=== PATIENT | male | born 1970 | race Caucasian/White ===

== ENCOUNTER 2020-07-27 14:41 | Emergency (ER) | payer BC ==
[2020-07-27 14:50] VITALS: BP 122/82; PULSE 83; RESP 20; TEMP 98.3
[2020-07-27] MEDS ORDERED: LIDOCAINE 1% INJ 10MG/ML (20 ML MDV) SQ ONE (15:07)
[2020-07-27] MEDS ORDERED: BACITRACIN OINT 1 EACH PACKET TOPICAL ONE (15:07)
--- NOTE | 2020-07-27 15:47 | ED ---
Wound/Laceration HPI - General Chief Complaint: Wound/Laceration Stated Complaint: finger lac Time Seen by Provider: 07/27/20 14:53 Source: patient Mode of arrival: ambulatory Limitations: no limitations - History of Present Illness Initial Comments: Patient is a 49-year-old male presenting to the emergency Department with complaints of a laceration to his right index finger. Patient states he was using a razor blade to cut some tile when he slipped and cut his finger. Patient is on eliquis for DVT. Patient does have some mild active bleeding, has been controlled with a bandage at this time. He states his tetanus vaccine is up-to-date. He has no further complaints at this time. - Related Data Allergies Allergy/AdvReac Type Severity Reaction Status Date / Time No Known Allergies Allergy Verified 07/27/20 14:50 Review of Systems ROS Statement: Those systems with pertinent positive or pertinent negative responses have been documented in the HPI. ROS Other: All systems not noted in ROS Statement are negative. Past Medical History Past Medical History: Deep Vein Thrombosis (DVT) History of Any Multi-Drug Resistant Organisms: None Reported Past Surgical History: Back Surgery Past Psychological History: No Psychological Hx Reported Smoking Status: Never smoker Past Alcohol Use History: None Reported Past Drug Use History: None Reported General Exam - General Exam Comments Initial Comments: GENERAL: Patient is well-developed and well-nourished. Patient is nontoxic and in no acute distress. HEAD: Atraumatic, normocephalic. EYES: Pupils equal round and reactive to light, extraocular movements intact, sclera anicteric, conjunctiva are normal. Eyelids were unremarkable. ENT: Nares patent, oropharynx clear without exudates. Moist mucous membranes. NECK: Normal range of motion, supple without lymphadenopathy or JVD. LUNGS: Unlabored respirations. Breath sounds clear to auscultation bilaterally and equal. No wheezes rales or rhonchi. HEART: Regular rate and rhythm without murmurs, rubs or gallops. ABDOMEN: Soft, nontender, normoactive bowel sounds. No guarding, no rebound. No masses appreciated. : Deferred MUSCULOSKELETAL: Normal extremities with adequate strength and normal range of motion, no pitting or edema. No clubbing or cyanosis. NEUROLOGICAL: Patient is alert and oriented x 3. Motor and sensory are also intact. Normal speech, normal gait. PSYCH: Normal mood, normal affect. SKIN: Warm, Dry, normal turgor, no rashes. Patient has a 2 cm laceration to his right index finger, palmar aspect. He does have some minor active bleeding however it is controlled with pressure and a bandage. Limitations: no limitations Course Vital Signs 07/27/20 14:47 Temperature 98.3 F Pulse Rate 83 Respiratory 20 Rate Blood Pressure 122/82 O2 Sat by Pulse 100 Oximetry Procedures - Laceration Laceration #1 Consent Obtained: verbal consent Indication: laceration Site: hand (Right index finger, palmar aspect.) Size (cm): 2 Description: linear Depth: simple, single layer Anesthetic Used: lidocaine 1% Anesthesia Technique: local infiltration Amount (mls): 3 Pre-repair: irrigated extensively Type of Sutures: nylon Size of Sutures: 5-0 Number of Sutures: 5 Technique: simple, interrupted Patient Tolerated Procedure: well Medical Decision Making - Medical Decision Making Patient is a 49-year-old male here for a 2 cm laceration to his right index finger, palmar aspect. He is on eliquis for DVT. His tetanus vaccine is up-to-date. Patient's wound was cleaned, closed with 5, 5-0 sutures. Patient tolerated procedure well. Patient will have sutures removed in 7-10 days. He is stable for discharge. He needs to keep wound clean and dry. He is in agreement with this plan of care. Disposition Clinical Impression: Laceration of right index finger Disposition: HOME SELF-CARE Condition: Stable Instructions (If sedation given, give patient instructions): Care For Your Stitches (ED) Additional Instructions: Please return to the Emergency Department if symptoms worsen or any other concerns. Stitches need to be removed in 7-10 days. Keep area clean and dry. Is patient prescribed a controlled substance at d/c from ED?: No Referrals: Binu Lamb MD [Primary Care Provider] - 1-2 days
== END 2020-07-27 16:07 | disposition home or self-care (01) ==
LOC: EC 14:41
DX: S61.210A Laceration without foreign body of right index finger without damage to nail, initial encounter (principal); Z79.01 Long term (current) use of anticoagulants; Z86.718 Personal history of other venous thrombosis and embolism; W26.8XXA Contact with other sharp object(s), not elsewhere classified, initial encounter; Y93.89 Activity, other specified; Y92.009 Unspecified place in unspecified non-institutional (private) residence as the place of occurrence of the external cause
CPT/HCPCS: 99282; 12001; J2001

== ENCOUNTER 2020-10-25 15:58 | Emergency (ER) | payer BC, OTHER ==
[2020-10-25] MEDS ORDERED: HYDROcodone/APAP 5-325MG 1 EACH TAB PO STA (16:29)
[2020-10-25] MEDS ORDERED: KETOROLAC 15 MG/ML 1 ML VIAL IM STA (16:29)
[2020-10-25] MEDS ORDERED: LIDOCAINE 1% INJ 10MG/ML (20 ML MDV) SQ ONE (16:31)
[2020-10-25] MEDS ORDERED: BACITRACIN OINT 1 EACH PACKET TOPICAL ONE (16:31)
--- NOTE | 2020-10-25 16:40 | ED ---
General Adult HPI - General Chief complaint: Animal Bite Stated complaint: [facility] dog bite Time Seen by Provider: 10/25/20 16:14 Source: patient Mode of arrival: ambulatory Limitations: no limitations - History of Present Illness Initial comments: 49 year-old male patient presents to the emergency department for evaluation after sustaining dog bite injury. 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 Patient was bit on both legs, right wrist, and left hand. Denies taking anything for pain. Does not take any blood thinning medications. Was able to get the bleeding under control. Denies any difficulty with range of motion. Patient denies any headache, neck pain, back pain, chest pain, shortness of breath, dizziness, weakness, abdominal pain, nausea, vomiting, or difficulties with bowel movements or urination. He states he is up to date on immunizations. The dog was euthanized and they will test for rabies. - Related Data Previous Rx's Medication Instructions Recorded Amoxic-Pot Clav 875-125Mg 1 tab PO Q12HR #20 tablet 10/25/20 [Augmentin 875-125] Allergies Allergy/AdvReac Type Severity Reaction Status Date / Time No Known Allergies Allergy Verified 10/25/20 16:07 Review of Systems ROS Statement: Those systems with pertinent positive or pertinent negative responses have been documented in the HPI. ROS Other: All systems not noted in ROS Statement are negative. Past Medical History Past Medical History: Deep Vein Thrombosis (DVT) History of Any Multi-Drug Resistant Organisms: None Reported Past Surgical History: Back Surgery Additional Past Surgical History / Comment(s): neck surgery - cervical fusion Past Psychological History: No Psychological Hx Reported Smoking Status: Never smoker Past Alcohol Use History: None Reported Past Drug Use History: None Reported General Exam Limitations: no limitations General appearance: alert, in no apparent distress, other (This is a well- developed, well-nourished adult male patient in no acute distress. Vital signs upon presentation are temperature 98.5F, pulse 95, respirations 20, blood pressure 139/88, pulse ox 94% on room air.) Eye exam: Present: normal appearance, PERRL, EOMI. Absent: scleral icterus, conjunctival injection, periorbital swelling ENT exam: Present: normal exam, normal oropharynx, mucous membranes moist Respiratory exam: Present: normal lung sounds bilaterally. Absent: respiratory distress, wheezes, rales, rhonchi, stridor Cardiovascular Exam: Present: regular rate, normal rhythm, normal heart sounds. Absent: systolic murmur, diastolic murmur, rubs, gallop, clicks Extremities exam: Present: full ROM, tenderness, normal capillary refill, other (Radial pulses 2+ and equal bilaterally. Pedal pulses 2+ and equal bilaterally). Absent: normal inspection, pedal edema, joint swelling, calf tenderness Neurological exam: Present: alert, oriented X3, CN II-XII intact Psychiatric exam: Present: normal affect, normal mood Skin exam: Present: warm, dry, intact, normal color. Absent: rash Expanded 1 - Single puncture wound, no active bleeding 2 - Superficial abrasion and ecchymosis, no active bleeding, tenderness 3 - 2 deep puncture wounds noted, no active bleeding, tenderness 4 - Multiple puncture wounds noted, soft tissue swelling, tenderness 5 - Multiple puncture wounds, no active bleeding. Tenderness. 6 - Laceration and puncture wounds noted to the palmar surface of the left hand. No active bleeding. Course Vital Signs 10/25/20 10/25/20 16:04 18:46 Temperature 98.5 F 98.1 F Pulse Rate 95 70 Respiratory 20 18 Rate Blood Pressure 139/88 122/84 O2 Sat by Pulse 94 L 97 Oximetry Procedures - Laceration Laceration #1 Consent Obtained: verbal consent Indication: laceration Site: hand Size (cm): 7 Description: linear Depth: simple, single layer Anesthetic Used: lidocaine 1% Anesthesia Technique: local infiltration Amount (mls): 5 Pre-repair: irrigated extensively Type of Sutures: nylon Size of Sutures: 4-0 Number of Sutures: 5 Technique: simple, interrupted Patient Tolerated Procedure: well, no complications Additional Comments: Wound was loosely approximated due to it being from dog bite. Medical Decision Making - Medical Decision Making 49 year-old male patient presents to the emergency department for evaluation after being attacked by a dog. Physical examination revealed multiple puncture wounds to the right lower leg, left lower leg, right wrist, and dorsal left hand. There was large laceration to the palm of the left hand. Xrays were obtained, showed no foreign body, no bony injury. Patient had full range of motion to the bilateral hands and wrists with and without resistance. All puncture wounds were irrigated extensively utilizing sterile water, a total of 1500ml of fluid was flushed through the wounds. The left hand was loosely approximated with sutures. Dressings were applied. Patient was educated regarding wound care and signs or symptoms of infection. He was started on Augmentin. He is instructed follow with orthopedics for further evaluation of his left hand wound. He declined prescription for pain medication. He is instructed to follow-up with his primary care physician for recheck in 1-2 days. Return parameters were discussed in detail. He verbalizes understanding and ag corie with this plan. Case discussed with my attending Dr. Martinez. - Radiology Data Radiology results: report reviewed Disposition Clinical Impression: Dog bite of right lower leg, Dog bite of left lower leg, Dog bite of right forearm, Dog bite of left hand, Laceration of left hand Disposition: HOME SELF-CARE Instructions (If sedation given, give patient instructions): Animal Bite (ED), Care For Your Stitches (ED), Laceration (ED) Additional Instructions: Keep wounds clean and dry. Cleanse twice daily with warm water and antibacter ial soap. Complete antibiotic prescription in full. Follow-up with orthopedics for further evaluation as soon as possible, call Wednesday morning for an appointment. Return for any new, worsening, or concerning symptoms. Prescriptions: Amoxic-Pot Clav 875-125Mg [Augmentin 875-125] 1 tab PO Q12HR #20 tablet Is patient prescribed a controlled substance at d/c from ED?: No Referrals: Binu Lamb MD [Primary Care Provider] - 1-2 days Ciro Molina DO [Doctor of Osteopathic Medicine] - 1-2 days Time of Disposition: 18:43
--- NOTE | 2020-10-25 17:17 | XR ---
EXAMINATION TYPE: XR wrist complete BILATERAL, XR hand complete LT DATE OF EXAM: 10/25/2020 COMPARISON: Right hand radiograph 08/25/2013 HISTORY: Dog bite. TECHNIQUE: AP, oblique, lateral, and scaphoid views of the bilateral wrists obtained. AP, oblique, an d lateral views of the left hand obtained. FINDINGS: No acute fracture. No dislocation. No evidence of radiopaque foreign body. Normal mineraliz ation. No significant soft tissue swelling. IMPRESSION: 1. No acute fracture or dislocation of the bilateral wrists or left hand. 2. No radiopaque foreign body.
--- NOTE | 2020-10-25 17:21 | XR ---
EXAMINATION TYPE: XR tibia fibula bilateral DATE OF EXAM: 10/25/2020 CLINICAL HISTORY: Dog bite TECHNIQUE: Two views of the right and left tibia and fibula are obtained. COMPARISON: None. FINDINGS: There is soft tissue gas and laceration of the left posteromedial proximal lower leg. Ther e is no acute fracture or dislocation seen bilaterally. The knee and ankle joints appear maintained b ilaterally. Normal osseous mineralization. No radiopaque foreign body. IMPRESSION: 1. Soft tissue gas and laceration of the left posteromedial proximal lower leg. 2. No acute osseous abnormality or radiopaque foreign body bilaterally.
[2020-10-25] MEDS ORDERED: AMOXIC-POT CLAV 875MG STARTER PACK 2 TAB BTL PO STA (18:41)
[2020-10-25 18:47] VITALS: BP 122/84; PULSE 70; RESP 18; TEMP 98.1
== END 2020-10-25 18:53 | disposition home or self-care (01) ==
LOC: EC 15:58
DX: S61.412A Laceration without foreign body of left hand, initial encounter (principal); S81.852A Open bite, left lower leg, initial encounter; S81.851A Open bite, right lower leg, initial encounter; S51.851A Open bite of right forearm, initial encounter; Z86.718 Personal history of other venous thrombosis and embolism; W54.0XXA Bitten by dog, initial encounter; Y92.69 Other specified industrial and construction area as the place of occurrence of the external cause; Y99.0 Civilian activity done for income or pay
CPT/HCPCS: 73110; 73590; 73130; 99283; 12002; J2001

== ENCOUNTER → 2021-02-12 | Outpatient (CLI) | payer BC ==
--- NOTE | 2021-02-12 13:10 | CT ---
EXAMINATION TYPE: CT urogram wo/w con DATE OF EXAM: 02/12/2021 COMPARISON: HISTORY: Calculus of kidney, blood in urine, left sided pain CT DLP: 2498.8 mGycm, Automated Exposure Control for Dose Reduction was Utilized. CONTRAST: CT scan of the abdomen and pelvis is performed with oral and without and with IV Contrast, patient in jected with 100 mL of Isovue 300. FINDINGS: Shunt tubing is present over the right chest extending into the abdomen in the right upper quadrant LUNG BASES: No significant abnormality is appreciated. LIVER/GB: Low dense focus in the left lobe of the liver likely represents a cyst measuring 1 cm, smal ler hypodensities are also present in the left lobe. PANCREAS: No significant abnormality is seen. SPLEEN: No significant abnormality is seen. ADRENALS: No significant abnormality is seen. KIDNEYS: Subcentimeter low dense foci are noted in each kidney which statistically are likely represe nt cysts. The left renal pelvis shows a calculus which measures approximately 10-11 mm in size. No hy dronephrosis bilaterally. There is some periureteral inflammatory change proximally on the left. No a dditional ureteral calcification. Ureters show normal course and caliber. BOWEL: Duodenal diverticulum is suspected at the level of the head of the pancreas. PROSTATE/SEMINAL VESICLES: Prostate is somewhat enlarged and lobular, shows associated calcification, inferior impression noted on the urinary bladder LYMPH NODES: No greater than 1cm abdominal or pelvic lymph nodes are appreciated. OSSEOUS STRUCTURES: No significant abnormality is seen. OTHER: Bilateral inguinal hernias or sizable and contain fat. IMPRESSION: Nonobstructive left renal pelvic stone is identified. Prostatic enlargement. Additional f indings above.
== END | disposition home or self-care (01) ==
LOC: RADXRMAIN 10:22
PROVIDERS: ATTEND Urology
DX: N20.0 Calculus of kidney (principal); N40.0 Benign prostatic hyperplasia without lower urinary tract symptoms
CPT/HCPCS: 74178; 74400; Q9967

== ENCOUNTER → 2021-02-21 | Outpatient (CLI) | payer BC ==
[2021-02-21 15:01] LABS: Basophils % (A) 0 %; Eosinophils # (A) 0.1 k/uL (0-0.7); Eosinophils % (A) 1 %; HCT 46.1 % (39.0-53.0); HGB 15.8 gm/dL (13.0-17.5); Lymphocytes # (A) 1.7 k/uL (1.0-4.8); Lymphocytes % (A) 23 %; MCH 32.3 pg (25.0-35.0); MCHC 34.3 g/dL (31.0-37.0); MCV 94.1 fL (80.0-100.0); Mean Platelet Volume 7.3; Monocytes # (A) 0.4 k/uL (0-1.0); Monocytes % (A) 6 %; Neutrophils # (A) 4.9 k/uL (1.3-7.7); Neutrophils % (A) 67 %; Platelet Count 283 k/uL (150-450); RDW 12.8 % (11.5-15.5); WBC 7.4 k/uL (3.8-10.6)
[2021-02-21 15:03] LABS: Appearance,Urine Clear (Clear); Bacteria,Urine Rare /hpf; Bilirubin,Urine Negative (Negative); Blood,Urine Large (Negative); Calcium Oxalate Crystals,Urine Rare /hpf; Color,Urine Yellow; Glucose,Urine (UA) Negative (Negative); Ketones,Urine Negative (Negative); Leukocyte Esterase,Urine Negative (Negative); Mucus,Urine Rare /hpf; Nitrite,Urine Negative (Negative); Protein,Urine 1+ (Negative); RBC,Urine >182 /hpf (0-5); Specific Gravity,Urine 1.024 (1.001-1.035); Squamous Epithelial Cell,Urine <1 /hpf (0-4); Urobilinogen,Urine <2.0 mg/dL (<2.0)
[2021-02-21 16:58] LABS: African American GFR (CKD) >90 (>60 ml/min/1.73 sqM); Anion Gap 10 mmol/L; Blood Urea Nitrogen 11 mg/dL (9-20); Calcium 9.3 mg/dL (8.4-10.2); Carbon Dioxide 25 mmol/L (22-30); Chloride 105 mmol/L (98-107); Glucose 93 mg/dL (74-99); Non-African American GFR(CKD) 85 (>60 ml/min/1.73 sqM); Potassium 4.4 mmol/L (3.5-5.1); Sodium 140 mmol/L (137-145)
== END | disposition home or self-care (01) ==
LOC: LABPAT 13:13
PROVIDERS: ATTEND Urology
DX: Z01.812 Encounter for preprocedural laboratory examination (principal); N20.0 Calculus of kidney; R31.29 Other microscopic hematuria
CPT/HCPCS: 36415; 80048; 81001; 85025; 87086

== ENCOUNTER 2021-02-27 13:10 | Day surgery (SDC) | payer BC ==
--- NOTE | 2021-02-27 11:43 | P.HPIHPCON ---
History of Present Illness H&P Date: 02/27/21 Chief Complaint: Left renal stone This is a 50-year-old male with history of 1 cm left-sided renal pelvis stone. He is symptomatic from his stone. Discussed with him the option of ESWL versus ureteroscopy. Discussed the risk and benefit of each approach. He agreed to proceed with left-sided ureteroscopy. Discussed the risk which includes but not limited to bleeding, infection, injury to the ureter. He understood all the risk and agreed to proceed with left-sided ureteroscopy, with holmium laser lithotripsy, stone basketing and stent insertion Consent for Procedure: I have explained the operation/procedure to the patient, including the risks, benefits, side effects, alternative therapies (including not receiving the proposed treatment or service), the likelihood of the patient achieving his/her goals, and potential recuperation problems for the procedure/sedation/analgesia, as well as any blood products, if indicated. I also explained to the patient the risks, benefits and side effects of the alternatives, as well as the risks r elated to not receiving the proposed procedure, care, treatment, or services. Past Medical History Past Medical History: Deep Vein Thrombosis (DVT) History of Any Multi-Drug Resistant Organisms: None Reported Past Surgical History: Back Surgery Additional Past Surgical History / Comment(s): neck surgery - cervical fusion Past Psychological History: No Psychological Hx Reported Smoking Status: Never smoker Past Alcohol Use History: None Reported Past Drug Use History: None Reported Medications and Allergies Home Medications Medication Instructions Recorded Confirmed Type Amoxic-Pot Clav 875-125Mg 1 tab PO Q12HR #20 tablet 10/25/20 Rx [Augmentin 875-125] Allergies Allergy/AdvReac Type Severity Reaction Status Date / Time No Known Allergies Allergy Verified 10/25/20 16:07 Surgical - Exam - General well developed, well nourished, no distress, moderate pain - Eyes normal ocular movement, no icteric - ENT normal nares, normal mucosa - Respiratory normal expansion, normal respiratory effort - Abdomen Abdomen: soft, non tender Assessment and Plan Assessment: OR for left-sided ureteroscopy, with holmium laser lithotripsy, stone basketing and stent insertion
[~2021-02-27 13:10] MED LIST: DEXAMETHASONE SOD PHOSPHATE 4 MG/ML 1 ML VIAL IV ONE; HYDROmorphone 0.5 MG/0.5 ML SYRINGE IVP PRN; ONDANSETRON 4 MG/2 ML VIAL IVP ONE
[2021-02-27] MEDS: LACTATED RINGERS 1,000 ML IV SCH ×2 (13:36→13:50)
[2021-02-27 13:42] VITALS: RESP 16
--- NOTE | 2021-02-27 13:54 | XR ---
KUB HISTORY: Calculus of kidney Frontal KUB correlated to CT urogram 02/12/2021 The calcifications seen on prior CT at the level of the left renal pelvis is again noted and measures approximately 1 cm on plain film. There is a phlebolith in left hemipelvis. Bone mineralization is n ormal. No evident pneumoperitoneum or bowel obstruction. Retained fecal debris is present within the colon. There is a tracheal of peritoneal shunt tubing catheter present within the right upper quadran t. IMPRESSION: Nephrolithiasis. Additional findings above.
[2021-02-27] MEDS ORDERED: MIDAZOLAM 2 MG/2 ML VIAL ONE (16:15)
[2021-02-27] MEDS ORDERED: LIDOCAINE 1% INJ 10MG/ML (20 ML MDV) ONE (16:15)
[2021-02-27] MEDS ORDERED: fentaNYL (PF) 50 MCG/ML 2 ML AMP ONE (16:15)
[2021-02-27] MEDS ORDERED: SUCCINYLCHOLINE CHLORIDE 100 MG/5 ML SYR IV ONE (16:15)
[2021-02-27] MEDS ORDERED: PROPOFOL 10 MG/ML 20 ML VIAL IV ONE (16:15)
[2021-02-27] MEDS ORDERED: ALBUTEROL HFA INHALER INHALATION ONE (16:15)
[2021-02-27] MEDS ORDERED: LACTATED RINGERS 1,000 ML IV ONE (17:09)
--- NOTE | 2021-02-27 17:30 | P.OP ---
Date of Procedure: 02/27/21 Preoperative Diagnosis: Left renal calculi Postoperative Diagnosis: Same Procedure(s) Performed: Cystoscopy, left ureteroscopy, holmium laser lithotripsy, stone basketing and stent insertion Implants: 4.8-Yoruba by 26 cm stent in the left ureter or left on a string Anesthesia: LILLIE Surgeon: Steven Leos Estimated Blood Loss (ml): 2 Pathology: other (left renal calculi) Condition: stable Disposition: PACU Indications for Procedure: This is a 50-year-old male with history of 1 cm left-sided renal pelvis stone. He is symptomatic from his stone. Discussed with him the option of ESWL versus ureteroscopy. Discussed the risk and benefit of each approach. He agreed to proceed with left-sided ureteroscopy. Discussed the risk which includes but not limited to bleeding, infection, injury to the ureter. He understood all the risk and agreed to proceed with left-sided ureteroscopy, with holmium laser lithotripsy, stone basketing and stent insertion Operative Findings: Large stone in the left renal pelvis Description of Procedure: Patient was brought to the operating room, general anesthesia was induced he was prepped and draped in sterile fashion a placement dorsal lithotomy position. Cystoscopy fitted with a 21-Yoruba sheath was inserted per urethra, cystoscopy was performed which showed no abnormality within the bladder. Next a sensor wire was advanced through the left ureteral orifice. Next an 1113 Yoruba access sheath was passed over the wire under fluoroscopy into the proximal ureter. Next the flexible ureteroscope was inserted through the access sheath. Renoscopy was performed which showed a large stone within the renal pelvis. Using the holmium laser the stone was fragmented into small fragments, sizable fragments were removed and sent for analysis. Repeat renoscopy showed no injury to the kidney or any sizable fragments. Pullback ureteroscopy was performed which showed no injury to the ureter or any ureteral fragments. As the ureteroscope was withdrawn and a sensor wire was advanced through. Next a ureteral stent was passed over the wire. The proximal curl was visualized on fluoroscopy and the distal curl was visualized using the cystoscope. Stent was left on a string. The bladder was emptied at the end of the case, patient tolerated the procedure well was taken to PACU in stable condition
[2021-02-27 17:41] VITALS: TEMP 96.8
[2021-02-27 18:38] VITALS: BP 131/84; PULSE 85
--- NOTE | 2021-02-28 08:22 | FL ---
EXAMINATION TYPE: FL urography retrograde DATE OF EXAM: 02/27/2021 COMPARISON: NONE HISTORY: Fluoroscopy time TECHNIQUE: Fluoroscopy. FINDINGS: Fluoroscopic guidance was provided during procedure of 22 seconds. IMPRESSION: As Above.
== END 2021-02-27 18:41 | disposition home or self-care (01) ==
LOC: OR 13:10
PROVIDERS: ATTEND Urology
DX: N20.0 Calculus of kidney (principal); Z87.442 Personal history of urinary calculi; Z86.73 Personal history of transient ischemic attack (TIA), and cerebral infarction without residual deficits; Z98.1 Arthrodesis status
CPT/HCPCS: 52356; 82365; 74420; 74018; C2625; C1769; J2250; J1100; J0690; J2405; J2001; J3010; J0330; J2704

== ENCOUNTER → 2022-12-01 | Outpatient (CLI) | payer BC ==
[2022-12-01 15:11] LABS: HCT 45.3 % (39.6-50.0); HGB 14.9 g/dL (13.0-17.0); MCHC 32.9 g/dL (32.0-37.0); MCV 94.4 fL (80.0-97.0); Mean Platelet Volume 9.5 fL (9.5-12.2); NRBC Per 100 WBC 0 /100 WBCS (0.0-0.0); Platelet Count 247 X 10*3/uL (140-440); RDW 12.4 % (11.5-14.5); WBC 5.95 X 10*3/uL (4.50-10.00)
[2022-12-01 15:58] LABS: African American GFR (CKD) 84.3 (60.0-200.0); Anion Gap 9.9 mmol/L (10.00-18.00); Blood Urea Nitrogen 18.7 mg/dL (9.0-27.0); Carbon Dioxide 26.1 mmol/L (20.0-27.5); Non-African American GFR(CKD) 72.8 (60.0-200.0); Potassium 4.7 mmol/L (3.5-5.5)
== END | disposition home or self-care (01) ==
LOC: LABPAT 09:33
PROVIDERS: ATTEND Internal Medicine
DX: Z01.812 Encounter for preprocedural laboratory examination (principal); R06.02 Shortness of breath
CPT/HCPCS: 36415; 80051; 82565; 84520; 85027

== ENCOUNTER 2022-12-03 10:44 | Day surgery (SDC) | payer BC ==
[~2022-12-03 10:44] MED LIST changes: +ALPRAZolam 0.25 MG TAB PO PRN; +ALPRAZolam 0.5 MG TAB PO PRN; +ASPIRIN 325 MG TAB PO STA; +ATORVASTATIN 80 MG TAB PO STA; -DEXAMETHASONE SOD PHOSPHATE 4 MG/ML 1 ML VIAL IV ONE; +HEPARIN SODIUM,PORCINE 10,000 UNIT in SODIUM CHLORIDE 0.9% 1,000 ML IRRIGATION PRN; +HEPARIN SODIUM,PORCINE 2,500 UNIT in SODIUM CHLORIDE 0.9% 250 ML IRRIGATION PRN; -HYDROmorphone 0.5 MG/0.5 ML SYRINGE IVP PRN; +NITROGLYCERIN SL TABS 0.4 MG TAB SUBLINGUAL PRN; -ONDANSETRON 4 MG/2 ML VIAL IVP ONE; +SODIUM CHLORIDE 0.9% 1,000 ML in EMPTY BAG 1 BAG IV SCH
[2022-12-03 11:32] VITALS: RESP 18; TEMP 97.7
[2022-12-03] MEDS ORDERED: VERAPAMIL 2.5 MG/ML 2 ML AMP ONE (11:40)
[2022-12-03] MEDS ORDERED: fentaNYL (PF) 50 MCG/ML 2 ML AMP ONE (11:56)
[2022-12-03] MEDS ORDERED: MIDAZOLAM 2 MG/2 ML VIAL IV ONE ×2 (12:09)
[2022-12-03] MEDS ORDERED: fentaNYL (PF) 50 MCG/1 ML VIAL IV ONE (12:09)
[2022-12-03] MEDS ORDERED: LIDOCAINE 1% INJ 10MG/ML (5 ML VIAL-PF) SQ ONE (12:13)
[2022-12-03] MEDS ORDERED: VERAPAMIL SYRINGE (5 MG/10 ML) INTRAARTER ONE (12:14)
[2022-12-03] MEDS ORDERED: HEPARIN SODIUM 1,000 UN/ML (10ML VL) IV ONE (12:18)
[2022-12-03] MEDS ORDERED: IOPAMIDOL-370 100ML BTL INJ ONE (12:24)
--- NOTE | 2022-12-03 12:28 | P.CARDCATH ---
Description of Procedure: PROCEDURES PERFORMED: Left heart catheterization, bilateral coronary angiography INDICATION: Cardiomyopathy CONSENT:I have discussed the risks, benefits and alternative therapies for the above-mentioned procedure and for both sedation/analgesia as well as necessary blood product administration, if indicated, as they pertain to this patient. The patient has indicated understanding and acceptance of the risks and procedures discussed. PROCEDURE: After the risks, benefits and alternatives of the above mentioned procedure explained in detail with the patient, informed consent was obtained. Patient was taken to the catheterization lab and prepped and draped in usual fashion. 1% lidocaine was used to anesthetize the right radial artery. A 6- [place] sheath was placed in the right radial artery using modified Seldinger technique. Left coronary angiography was performed with a 5-South African JL 3.5 catheter and right coronary angiography was performed with a 5-[place] African JR5 catheter in various views. A 5-[place] African FR5 catheter was inserted into the left ventricle and pressure measurements were obtained. The right radial sheath was removed and a TR band was placed with hemostasis achieved. The patient tolerated the procedure well. Patient was transported back to the post catheterization holding area in stable condition. Conscious Sedation: Patient was monitored under the direct supervision of myself for conscious sedation using Versed and fentanyl for a total duration of 11 minutes HEMODYNAMICS: Aorta: 130/80 LV: 132/5, LVEDP 17mmHg SELECTIVE CORONARY ARTERIOGRAPHY: LEFT MAIN: The left main is a large caliber vessel which bifurcates into the LAD and circumflex. There is no significant stenosis. LEFT ANTERIOR DESCENDING CORONARY ARTERY: LAD is a large caliber vessel which wraps around to the apex. There is no significant stenosis. LEFT CIRCUMFLEX CORONARY ARTERY: Left circumflex is a moderate caliber vessel without significant stenosis. RIGHT CORONARY ARTERY: The right coronary artery is a large caliber vessel which gives off a PDA and PLV branch and is the dominant vessel. There is no significant stenosis. FINAL IMPRESSION: 1. Normal coronary arteries as described above. 2. Mildly elevated left sided filling pressures PLAN: 1. Aggressive risk factor modification per most recent ACC/AHA guidelines. 2. Follow-up in the office in 1-2 weeks.
[2022-12-03 15:58] VITALS: BP 141/76; PULSE 60
== END 2022-12-03 16:15 | disposition home or self-care (01) ==
LOC: CATHCVL 10:44
PROVIDERS: ATTEND Internal Medicine
DX: I42.9 Cardiomyopathy, unspecified (principal); I50.22 Chronic systolic (congestive) heart failure; I44.7 Left bundle-branch block, unspecified; I71.21 Aneurysm of the ascending aorta, without rupture; F32.A Depression, unspecified; Z86.718 Personal history of other venous thrombosis and embolism; Z82.49 Family history of ischemic heart disease and other diseases of the circulatory system; Z79.899 Other long term (current) drug therapy
CPT/HCPCS: 93458; 99152; C1769; C1894; J2250; J2001; J1644; Q9967; J3010

== ENCOUNTER → 2024-04-24 | Outpatient (CLI) | payer BC | END | disposition home or self-care (01) | LOC: LABWHC1 10:17 | PROVIDERS: ATTEND Internal Medicine Clinical Cardiac Electrophysiology | DX: I42.8 Other cardiomyopathies (principal) | CPT/HCPCS: 36415; 84443 ==

== ENCOUNTER → 2024-06-15 | Outpatient (CLI) | payer BC ==
[2024-06-15 10:33] LABS: HCT 49.9 % (39.6-50.0); HGB 16.3 g/dL (13.0-17.0); MCH 30.6 pg (27.0-32.0); MCHC 32.7 g/dL (32.0-37.0); MCV 93.8 FL (80.0-97.0); Mean Platelet Volume 9.1 FL (9.5-12.2); NRBC Per 100 WBC 0 X 10*3/uL (0.00-0.01); Platelet Count 249 X 10*3/uL (140-440); RBC 5.32 X 10*6/uL (4.40-5.60); RDW 12.4 % (11.5-14.5); WBC 6.31 X 10*3/uL (4.50-10.00)
[2024-06-15 10:37] LABS: Blood Urea Nitrogen 17.2 mg/dL (9.0-27.0); Carbon Dioxide 27.8 mmol/L (21.6-31.8); Chloride 103 mmol/L (96-109); Potassium 4.5 mmol/L (3.5-5.5); Sodium 141 mmol/L (135-145)
== END | disposition home or self-care (01) ==
LOC: LABWHC1 07:05
PROVIDERS: ATTEND Internal Medicine Clinical Cardiac Electrophysiology
DX: Z01.818 Encounter for other preprocedural examination (principal)
CPT/HCPCS: 80051; 82565; 84520; 85027

== ENCOUNTER 2024-06-22 13:54 | Day surgery (SDC) | payer BC ==
[2024-06-22] MEDS: SODIUM CHLORIDE 0.9% 1,000 ML IV SCH ×2 (14:42→20:45)
[2024-06-22] MEDS: IV FLUID CONTINUATION 1,000 ML IV ONE (14:42)
[2024-06-22 14:59] VITALS: RESP 16
[2024-06-22 15:10] LABS: ALT 21 U/L (4-49); AST 21 U/L (17-59); African American GFR (CKD) 85 (>60 ml/min/1.73 sqM); Alkaline Phosphatase 88 U/L (38-126); Anion Gap 7 mmol/L; Blood Urea Nitrogen 16 mg/dL (9-20); Calcium 9.7 mg/dL (8.4-10.2); Carbon Dioxide 28 mmol/L (22-30); Chloride 105 mmol/L (98-107); Glucose 94 mg/dL (74-99); Non-African American GFR(CKD) 74 (>60 ml/min/1.73 sqM); Potassium 4.6 mmol/L (3.5-5.1); Sodium 140 mmol/L (137-145); Total Bilirubin 1.1 mg/dL (0.2-1.3); Total Protein 8.8 g/dL (6.3-8.2)
[2024-06-22] MEDS ORDERED: MIDAZOLAM 2 MG/2 ML VIAL ONE (16:22)
[2024-06-22] MEDS ORDERED: fentaNYL (PF) 50 MCG/ML 2 ML AMP ONE (16:22)
[2024-06-22] MEDS ORDERED: KETAMINE HCL IN 0.9 % NACL 50 MG/5 ML SYRINGE ONE (16:22)
[2024-06-22] MEDS ORDERED: hydrALAZINE HCL 20 MG/ML 1 ML VIAL ONE (16:22)
[2024-06-22] MEDS ORDERED: diphenhydrAMINE 50 MG/ML 1 ML VIAL ONE (16:22)
[2024-06-22] MEDS: IOPAMIDOL-370 100ML BTL INJ ONE (16:39)
[2024-06-22] MEDS: ceFAZolin 1 GM in SODIUM CHLORIDE 0.9% IRRIG BTL 250 ML IRRIGATION PRN (16:54)
[2024-06-22] MEDS: LIDOCAINE 1% INJ 10MG/ML (20 ML MDV) SQ ONE (17:10)
[2024-06-22] MEDS: ROPIVACAINE 5 MG/ML 30 ML VIAL MISCELLANE ONE (17:10)
[2024-06-22] MEDS ORDERED: ACETAMINOPHEN TAB 325 MG TAB PO PRN (19:26)
--- NOTE | 2024-06-22 19:39 | P.EPPROC ---
- EP Procedure Note Electrophysiology Procedure Note: Diagnosis Nonischemic cardiomyopathy, chronic Congestive heart failure [place] [employer] class 2 Wide QRS left bundle branch block, QRS width 170 ms Normal coronary arteries On guide line directed medical treatment for greater than 3 months Procedure: Biventricular ICD implantation for management of risk of sudden cardiac and congestive heart failure Result: Successful biventricular ICD implantation, Atrial lead: [employer] 52 cm, pacing threshold 0.5 V at 0.5 ms, P waves greater than 5 mV and pacing impedance 560 ohms. High output testing negative RV ICD lead: [employer], screwed in RV septum, pacing threshold 0.5 V at 0.5 ms, R waves greater than 7 mV, pacing impedance 640 ohms Left ventricular lead: Cortez lead placed in the anterolateral vein. Threshold in the proximal poles 0.7 V at 0.5 ms pacing impedance 780 ohms. No diaphragmatic stimulation along the vein High-voltage impedance 77 ohms Procedure details: Patient was brought to the EP lab in a fasting state. Written informed consent was obtained prior to the procedure. Options, pros and cons, benefits and risks and complications discussed with patient in detail prior to the procedure (shared decision making) previously. Importance of continuing medical treatment emphasized previously. Alternatives discussed previously. Left upper extremity venogram performed. 15 mL IV dye injected in the left arm. Patent axillary/subclavian vein The left pectoral area was prepped and draped as a protocol. IV antibiotics administered 1% lidocaine was used for local anesthesia. A 4 cm incision was made parallel to the deltopectoral groove, about 1.5 cm medial to it. The incision was carried down to the level of the pectoralis muscle and the subfascial pocket was made. Hemostasis was assured. The axillary vein access was obtained. Appropriately sized into to see sheaths were placed. ICD lead implanted in the right ventricle and screwed in. ICD lead tested for threshold, sensing, impedances and tested with high output pacing for diaphragmatic stimulation. Negative diaphragmatic stimulation Atrial lead placed in the right atrial appendage and tested for threshold, sensing, impedance, and tested with high output pacing. Phrenic nerve stimulation negative Coronary sinus/left ventricular epicardial lead placement: Anterolateral vein placement Leads secured to the underlying pectoral muscle after removing sheaths . Pocket irrigated with antibiotic solution. Antibiotic pouch placed Leads connected to the biventricular ICD generator. Wound closed in 3 layers and dressed per protocol Biventricular ICD interrogated and programmed. Appropriate pacing parameters, antitachycardia therapies with antitachycardia pacing cardioversion defibrillations programmed. AV delay and biventricular pacing parameters programmed to achieve optimal physiologic pacing LV offset 70 ms recommended and programmed Short AV delay of 150 ms MADIT RIT programming for VT VF Patient tolerated the procedure well without any acute complications. See scanned device report in EMR for lead details DFT deferred until 3 months for maximization of medical treatment Plan Increase metoprolol succinate to 50 mg p.o. daily Add spironolactone Maximize beta-blockers further
--- NOTE | 2024-06-22 19:40 | P.PRLE ---
RE: Milton Cedeno Dear Binu Milton underwent implantation of a biventricular ICD successfully. We should now increase his beta-blockers to the maximum tolerated doses along with DOMINIC inhibitors/Entresto and spironolactone Thank you for entrusting me with the care of the patient Warm regards Sincerely Kee Zee,
[2024-06-22] MEDS: QUEtiapine 50 MG TAB PO SCH (20:48)
[2024-06-22] MEDS: METOPROLOL SUCCINATE (ER) 25 MG TAB.ER.24H PO STA (20:48)
--- NOTE | 2024-06-23 06:37 | P.DS ---
Providers Attending physician: Kee Zee Primary care physician: Binu Boss [facility] Course: Patient is doing well. No chest discomfort dizziness or lightheadedness Mild discomfort and minimal soakage in the ICD dressing site Heart sounds are normal no rub no gallop Breath sounds are clear no rhonchi no crackles Blood pressure 100/64 in 123/76 mmHg pulse rate in the 60s afebrile Impression Severe nonischemic cardiomyopathy with normal coronary arteries Class II CHF [place] interval of about 180-190 ms with a left bundle branch block, wide QRS, heart rate 70 ms Successful BiV ICD implantation with LV lead in the anterolateral vein with good thresholds all along as well as absence of diaphragmatic stimulation in this vein Plan Increase metoprolol to 50 mg long-acting Add spironolactone 25 mg p.o. daily After chest x-ray and device interrogation if within normal limits, he may go home and follow-up in the device clinic in [address] Huber Future plan further maximization of beta-blockers and defibrillation level testing in 3 months Patient Condition at Discharge: Stable Plan - Discharge Summary New Discharge Prescriptions: New Spironolactone 25 mg PO DAILY #90 tablet Metoprolol Succinate (ER) [Toprol XL] 50 mg PO DAILY #90 tab Discontinued Metoprolol Succinate [Metoprolol Succinate ER] 25 mg PO DAILY No Action QUEtiapine FUMARATE 50 mg PO HS DULoxetine HCL [Cymbalta] 60 mg PO DAILY lisinopriL 2.5 mg PO HS Empagliflozin [Jardiance] 10 mg PO DAILY Discharge Medication List DULoxetine HCL [Cymbalta] 60 mg PO DAILY 12/02/22 [History] QUEtiapine FUMARATE 50 mg PO HS 12/02/22 [History] Empagliflozin [Jardiance] 10 mg PO DAILY 06/22/24 [History] Metoprolol Succinate (ER) [Toprol XL] 50 mg PO DAILY #90 tab 06/22/24 [Rx] Spironolactone 25 mg PO DAILY #90 tablet 06/22/24 [Rx] lisinopriL 2.5 mg PO HS 06/22/24 [History] Follow up Appointment(s)/Referral(s): Arian Huber DO [STAFF PHYSICIAN] - 06/27/24 9:30 am (DEVICE CLINIC APPT ON 06/27 AT 9:[address] HUBER THAT DAY ALSO.) Activity/Diet/Wound Care/Special Instructions: PATIENT EDUCATION MATERIAL Instructions following a heart rhythm device implant. 1. Keep dressing DRY for 5 DAYS. You may cover the area with Saran or Cling Wrap, prior to a shower. 2. The dressing will be removed in the Device Clinic at [facility]. Absorbable sutures were used to close the wound. 3. Avoid raising the left arm above the shoulder level. 4 week restriction 4. Avoid arm movements, like backscratching, rubbing the head, or pulling on a cord. 4 weeks restriction 5. Gentle range of motion movements of the shoulder, closest to the incision should be performed to avoid a frozen shoulder. (Pendulum exercises of the shoulder) 6. The opposite arm may be used freely. 7. Avoid driving for 7 days. 8. Avoid activities such as golfing, swimming, weed whacking, lifting more than 10 pounds weight, bowling, gymnastics and weight training/lifting. (6 weeks restriction) 9. Activities such as wood chopping with an axe, pull-ups in the gymnasium, power lifting, arc-welding, being close to home induction cooktops will always be a problem. 10. Arm sling is only a reminder not to raise the arm above the head. You do not need to keep the arm completely immobilized. Your free to move the arm and use it and for normal activities. In case of any problems, please call [facility], Lula Botello, @ [phone], Attention: Device Clinic Device clinic follow-up in 5 days Follow-up with primary continuity clerk in 2-3 months Change in medications Increase metoprolol succinate to 50 mg p.o. daily Add spironolactone 25 mg p.o. daily Continue lisinopril
[2024-06-23 07:36] VITALS: BP 111/74; PULSE 68; TEMP 98.4
[2024-06-23] MEDS: DULoxetine HCL 60 MG CAPSULE.DR PO SCH (08:23)
[2024-06-23] MEDS: METOPROLOL SUCCINATE (ER) 50 MG TAB.ER.24H PO SCH (08:23)
[2024-06-23] MEDS: SPIRONOLACTONE 25 MG TAB PO SCH (08:23)
[2024-06-23] MEDS: DAPAGLIFLOZIN PROPANEDIOL 5 MG TABLET PO SCH (08:23)
--- NOTE | 2024-06-23 09:22 | XR ---
EXAMINATION TYPE: XR chest 2V DATE OF EXAM: 06/23/2024 7:02 AM COMPARISON: None CLINICAL INDICATION: Male, 53 years old with history of Lead placement check; TECHNIQUE: XR chest 2V Frontal and lateral views of the chest. FINDINGS: Lungs/Pleura: There is no evidence of pleural effusion, focal consolidation, or pneumothorax. Pulmonary vascularity: Unremarkable. Heart/mediastinum: Cardiomediastinal silhouette is unremarkable. Three lead cardiac conduction device overlying the left hemithorax with lead tips projecting over the right ventricle, right atrium and c oronary sinus. Musculoskeletal: No acute osseous pathology. Other findings: None Lines/Tubes: Ventriculoperitoneal shunt tubing noted along the right aspect of the radiograph. IMPRESSION: No acute cardiopulmonary disease/process. [facility] Malcolm Botello, , 06/23/2024 9:20 AM
== END 2024-06-23 10:26 ==
LOC: CATHEP 13:54 → 6NMEDSUR 19:12 → CATHEP 06-23 10:26
PROVIDERS: ATTEND Internal Medicine Clinical Cardiac Electrophysiology
DX: I44.7 Left bundle-branch block, unspecified (principal); I42.8 Other cardiomyopathies; I50.22 Chronic systolic (congestive) heart failure; Z79.899 Other long term (current) drug therapy
CPT/HCPCS: 33225; 33249; 80053; 71046; C1882; C1898; C1777; C1900; J0690 ×2; J2003; J2795; Q9967

== ENCOUNTER 2024-09-04 07:50 | Inpatient (IN) | payer BC ==
--- NOTE | 2024-09-04 08:32 | ED ---
General Adult HPI - General Chief complaint: Psychiatric Symptoms Stated complaint: mental health, suicidal Time Seen by Provider: 09/04/24 07:59 Source: patient, family, RN notes reviewed Mode of arrival: ambulatory Limitations: no limitations - History of Present Illness Initial comments: Patient is a 53-year-old male present to the emergency department with depression. Patient has stress regarding workplace problems and others. Patient has been more depressed lately. Patient has thoughts of self-harm. Yesterday patient was found by in the garage with the car running. Today patient abraded his right wrist. Unclear last tetanus immunization. Patient feels depressed and has suicidal thoughts. No hallucinations. Decreased appetite. Decreased sleep. No homicidal thoughts. - Related Data Home Medications Medication Instructions Recorded Confirmed DULoxetine HCL [Cymbalta] 60 mg PO DAILY 12/02/22 06/22/24 QUEtiapine FUMARATE 50 mg PO HS 12/02/22 06/22/24 Empagliflozin [Jardiance] 10 mg PO DAILY 06/22/24 06/22/24 lisinopriL 2.5 mg PO HS 06/22/24 06/22/24 Previous Rx's Medication Instructions Recorded Metoprolol Succinate (ER) [Toprol 50 mg PO DAILY #90 tab 06/22/24 XL] Spironolactone 25 mg PO DAILY #90 tablet 06/22/24 Allergies Allergy/AdvReac Type Severity Reaction Status Date / Time No Known Allergies Allergy Verified 09/04/24 08:03 Review of Systems ROS Statement: Those systems with pertinent positive or pertinent negative responses have been documented in the HPI. ROS Other: All systems not noted in ROS Statement are negative. Constitutional: Denies: fever Eyes: Denies: eye pain ENT: Denies: ear pain Respiratory: Denies: dyspnea Psychiatric: Reports: depression, suicidal thoughts. Denies: auditory hallucinations, visual hallucinations, homicidal thoughts Past Medical History Past Medical History: Deep Vein Thrombosis (DVT) History of Any Multi-Drug Resistant Organisms: None Reported Past Surgical History: Pacemaker Additional Past Surgical History / Comment(s): neck surgery - cervical fusion Past Psychological History: No Psychological Hx Reported Smoking Status: Never smoker Past Alcohol Use History: None Reported Past Drug Use History: None Reported General Exam Limitations: no limitations General appearance: alert, in no apparent distress Head exam: Present: normocephalic Eye exam: Present: normal appearance Neck exam: Present: normal inspection Respiratory exam: Present: normal lung sounds bilaterally Cardiovascular Exam: Present: regular rate, normal rhythm GI/Abdominal exam: Present: soft. Absent: tenderness Extremities exam: Present: normal inspection Neurological exam: Present: alert Psychiatric exam: Present: flat affect Skin exam: Present: abrasion Course Vital Signs 09/04/24 07:59 Temperature 97.3 F L Pulse Rate 67 Respiratory 20 Rate Blood Pressure 134/89 O2 Sat by Pulse 99 Oximetry Medical Decision Making - Medical Decision Making Was pt. sent in by a medical professional or institution (, PA, LUBRICATION TECHNICIAN, urgent care, hospital, or penitentiary...) When possible be specific @ -No Did you speak to anyone other than the patient for history (EMS, parent, family, police, friend...)? What history was obtained from this source @ -Family is present helps provide additional history including stressors that patient is under Did you review nursing and triage notes (agree or disagree)? Why? @ -I reviewed and agree with nursing and triage notes Were old charts reviewed (outside hosp., previous admission, EMS record, old EKG, old radiological studies, urgent care reports/EKG's, penitentiary records)? Report findings @ -No old charts were reviewed Differential Diagnosis (chest pain, altered mental status, abdominal pain women, abdominal pain men, vaginal bleeding, weakness, fever, dyspnea, syncope, heada meño, dizziness, GI bleed, back pain, seizure, CVA, palpatations, mental health, musculoskeletal)? @ -Differential Mental Health Depression, anxiety, bipolar, psychosis, schizophrenia, borderline personality, situational depression, adjustment disorder, behavioral disorder, brain tumor, malingering, substance abuse, encephalopathy, medication reaction, dementia, hypothyroidism, degenerative neurologic disorder, lupus.... This is not meant to be all-inclusive list EKG interpreted by me (3pts min.). @ -As above X-rays interpreted by me (1pt min.). @ -None done CT interpreted by me (1pt min.). @ -None done U/S interpreted by me (1pt. min.). @ -None done What testing was considered but not performed or refused? (CT, X-rays, U/S, labs)? Why? @ -None What meds were considered but not given or refused? Why? @ -None Did you discuss the management of the patient with other professionals (professionals i.e. , PA, LUBRICATION TECHNICIAN, lab, RT, psych nurse, social media marketing manager, employer relations representative, teacher, flight communications officer, case technician)? Give summary @ -Case was discussed with psychiatric nurse with plans for admission Was smoking cessation discussed for >3mins.? @ -No Was critical care preformed (if so, how long)? @ -No Were there social determinants of health that impacted care today? How? (Homelessness, low income, unemployed, alcoholism, drug addiction, transportation, low edu. Level, literacy, decrease access to med. care, retirement, rehab)? @ -No Was there de-escalation of care discussed even if they declined (Discuss DNR or withdrawal of care, Hospice)? DNR status @ -No What co-morbidities impacted this encounter? (DM, HTN, Smoking, COPD, CAD, Cancer, CVA, ARF, Chemo, Hep., AIDS, mental health diagnosis, sleep apnea, morbid obesity)? @ -History of depression Was patient admitted / discharged? Hospital course, mention meds given and route, prescriptions, significant lab abnormalities, going to OR and other pertinent info. @ -Patient presents with depression and suicidal ideation and suicidal ges tures. Patient will be admitted with psychiatric care. Undiagnosed new problem with uncertain prognosis? @ -No Drug Therapy requiring intensive monitoring for toxicity (Heparin, Nitro, Insulin, Cardizem)? @ -No Were any procedures done? @ -No Diagnosis/symptom? @ -Depression, suicidal ideation Acute, or Chronic, or Acute on Chronic? @ -Acute on chronic, acute Uncomplicated (without systemic symptoms) or Complicated (systemic symptoms)? @ -Default Side effects of treatment? @ -No Exacerbation, Progression, or Severe Exacerbation? @ -No Poses a threat to life or bodily function? How? (Chest pain, [place], [place], pneumonia, PE, COPD, DKA, ARF, appy, cholecystitis, CVA, Diverticulitis, Homicidal, Suicidal, threat to staff... and all critical care pts) @ -No - Lab Data Lab Results 09/04/24 Range/Units 08:06 Urine Opiates Screen Not Detected (NotDetected) Ur Oxycodone Screen Not Detected (NotDetected) Urine Methadone Screen Not Detected (NotDetected) Ur Barbiturates Screen Not Detected (NotDetected) U Tricyclic Antidepress Detected H (NotDetected) Ur Phencyclidine Scrn Not Detected (NotDetected) Ur Amphetamines Screen Not Detected (NotDetected) U Methamphetamines Scrn Not Detected (NotDetected) U Benzodiazepines Scrn Not Detected (NotDetected) Urine Cocaine Screen Not Detected (NotDetected) U Marijuana (THC) Screen Not Detected (NotDetected) Disposition Clinical Impression: Depression, Suicidal ideation Disposition: TRANSFER TO PSYCH HOSP/UNIT Is patient prescribed a controlled substance at d/c from ED?: No Referrals: Binu Lamb [Primary Care Provider] - 1-2 days Time of Disposition: 12:00
[2024-09-04 08:48] LABS: Amphetamine Screen,Urine Not Detected (NotDetected); Barbiturate Screen,Urine Not Detected (NotDetected); Benzodiazepines Screen,Urine Not Detected (NotDetected); Cocaine Screen,Urine Not Detected (NotDetected); Methadone Screen, Urine Not Detected (NotDetected); Opiate Screen,Urine Not Detected (NotDetected); Oxycodone Screen, Urine Not Detected (NotDetected); Phencyclidine Screen,Urine Not Detected (NotDetected); Tricyclic Antidepressant,Urine Detected (NotDetected); Urn Cannabinoid Scrn Not Detected (NotDetected)
[2024-09-04] MEDS: DIPH,PERTUS(ACELL)TETVAC-LF 0.5 ML VIAL IM ONE (09:50)
[2024-09-04] MEDS ORDERED: MAGNESIUM HYDROXIDE 2,400 MG/30 ML CUP PO PRN (14:08)
[2024-09-04] MEDS ORDERED: LORazepam 2 MG/ML INJ IM PRN (14:08)
[2024-09-04] MEDS ORDERED: haloperidoL 5 MG TAB PO PRN (14:08)
[2024-09-04] MEDS ORDERED: LORazepam 1 MG TAB PO PRN (14:08)
[2024-09-04] MEDS ORDERED: ACETAMINOPHEN TAB 325 MG TAB PO PRN (14:08)
[2024-09-04] MEDS ORDERED: IBUPROFEN 600 MG TAB PO PRN (14:08)
[2024-09-04] MEDS ORDERED: HALOPERIDOL LACTATE 5 MG/ML 1 ML VIAL IM PRN (14:08)
[2024-09-04] MEDS ORDERED: MAG HYDROX/AL HYDROX/SIMETH 355 ML BOTTLE PO PRN (14:08)
[2024-09-04 16:10] LABS: Appearance,Urine Cloudy (Clear); Bilirubin,Urine Negative (Negative); Blood,Urine Trace (Negative); Color,Urine Yellow; Glucose,Urine (UA) 4+ (Negative); Hyaline Casts,Urine 1 /lpf (0-2); Ketones,Urine Negative (Negative); Leukocyte Esterase,Urine Negative (Negative); Mucus,Urine Rare /hpf; Nitrite,Urine Negative (Negative); PH, Urine 5.5 (5.0-8.0); Protein,Urine Trace (Negative); RBC,Urine 3 /hpf (0-5); Specific Gravity,Urine 1.035 (1.001-1.035); Urobilinogen,Urine <2.0 mg/dL (<2.0); WBC,Urine 1 /hpf (0-5)
[2024-09-04] MEDS: QUEtiapine 100 MG TAB PO SCH (21:18)
--- NOTE | 2024-09-05 06:36 | P.MDCNMH ---
History of Present Illness H&P Date: 09/05/24 This is a pleasant 53-year-old male who presented to the emergency department with suicidal ideations with increased depression. Patient reportedly sat in the garage with the car running and attempts to harm himself and also began cutting his right wrist which on exam is very superficial with no redness no drainage noted and some scabbing has already formed. Patient reports he follows with Dr. Lamb in the outpatient setting with past medical history of angina, DVT, TBI, pacemaker, cervical fusion and had a shunt following a TBI with anxiety and depression. Patient denies alcohol, tobacco, or drug use. Patient was voluntarily admitted to [facility] for further psychiatric evaluation. On exam patient is pleasant although avoids eye contact and is cooperative with no reports of chest pain or shortness of breath. Patient reports not eating very much does not have much of an appetite. Patient denies any nausea or vomiting. Patient currently in a group therapy session and is being compliant with medications. Vital signs are stable. REVIEW OF SYSTEMS: CONSTITUTIONAL: No fever, no malaise, no fatigue. HEENT: No recent visual problems or hearing problems. Denied any sore throat. CARDIOVASCULAR: No chest pain, orthopnea, PND, no palpitations, no syncope. PULMONARY: No shortness of breath, no cough, no hemoptysis. GASTROINTESTINAL: No diarrhea, no nausea, no vomiting, no abdominal pain. NEUROLOGICAL: No headaches, no weakness, no numbness. HEMATOLOGICAL: Denies any bleeding or petechiae. GENITOURINARY: Denies any burning micturition, frequency, or urgency. MUSCULOSKELETAL/RHEUMATOLOGICAL: Denies any joint pain, swelling, or any muscle pain. ENDOCRINE: Denies any polyuria or polydipsia. The rest of the 14-point review of systems is negative. PHYSICAL EXAMINATION: GENERAL: The patient is alert and oriented x3, not in any acute distress. Anxious. Well developed, well nourished. HEENT: Pupils are round and equally reacting to light. EOMI. No scleral icterus. No conjunctival pallor. Normocephalic, atraumatic. No pharyngeal erythema. No thyromegaly. CARDIOVASCULAR: S1 and S2 present. No murmurs, rubs, or gallops. PULMONARY: Chest is clear to auscultation, no wheezing or crackles. ABDOMEN: Soft, nontender, nondistended, normoactive bowel sounds. No palpable organomegaly. MUSCULOSKELETAL: No joint swelling or deformity. EXTREMITIES: No cyanosis, clubbing, or pedal edema. NEUROLOGICAL: Gross neurological examination did not reveal any focal deficits. Gait steady on exam SKIN: No rashes. Assessment: Depression with suicidal ideation and attempt Superficial laceration on the right wrist secondary to self-harm, no appearance of cellulitis or infection noted History of TBI with shunt History of permanent pacemaker History of angina History of previous DVT History of anxiety/depression/PTSD GI prophylaxis Full code Plan: Patient voluntarily admitted to [facility] [address]. psychiatric unit for further evaluation as patient is having suicidal ideations with thoughts and attempts as patient reports he was sitting in his garage with the car running and was found by his and brought to the ER Patient had been cutting at himself and very superficially cut his right wrist and there is no drainage, redness or irritation involved, recommend avoiding touching the area and using soap and water and bacitracin Recommend basic labs in the a.m. and fasting Encourage group therapy sessions and compliance with medication and psychiatry evaluation Patient instructed to follow-up with primary care provider on discharge The impression and plan of care has been dictated by Kizzy Schmitt, Nurse Practitioner as directed. Dr. Rolf MD I have performed a history and examination and MDM of this patient, discussed the same with the dictator, and agree with the dictator's assessment and plan as written ,documented as a scribe. Based on total visit time, I have performed more than 50% of the visit. Past Medical History Past Medical History: Chest Pain / Angina, Deep Vein Thrombosis (DVT) Additional Past Medical History / Comment(s): TBI History of Any Multi-Drug Resistant Organisms: None Reported Past Surgical History: Pacemaker Additional Past Surgical History / Comment(s): cervical fusion, shunt following TBI Past Anesthesia/Blood Transfusion Reactions: No Reported Reaction Type of Cardiac Device: Permanent Pacemaker Device Placement Date:: 06/2024 Past Psychological History: Anxiety, Depression Smoking Status: Never smoker Past Alcohol Use History: None Reported Past Drug Use History: None Reported - Past Family History Mother Family Medical History: No Reported History Additional Family Medical History / Comment(s): pt reports mother is still living and has no reported medical history (09/04/24) Father Additional Family Medical History / Comment(s): pt reports father has cardiac history and has had 2 stents placed. Father is still living (09/04/24) Medications and Allergies Home Medications Medication Instructions Recorded Confirmed Type DULoxetine HCL [Cymbalta] 60 mg PO DAILY 12/02/22 09/04/24 History QUEtiapine FUMARATE 50 mg PO HS 12/02/22 09/04/24 History Metoprolol Succinate (ER) [Toprol 50 mg PO DAILY #90 tab 06/22/24 09/04/24 Rx XL] Spironolactone 25 mg PO DAILY #90 tablet 06/22/24 09/04/24 Rx lisinopriL 2.5 mg PO HS 06/22/24 09/04/24 History Dapagliflozin Propanediol [Farxiga] 10 mg PO DAILY 09/04/24 09/04/24 History Allergies Allergy/AdvReac Type Severity Reaction Status Date / Time No Known Allergies Allergy Verified 09/04/24 12:15 Physical Exam Vitals: Vital Signs Temp Pulse Pulse Resp BP BP Pulse Ox 09/04/24 21:19 98.0 F 67 17 130/82 98 09/04/24 15:46 97.5 F L 73 16 123/79 97 09/04/24 07:59 97.3 F L 67 20 134/89 99 Intake and Output 09/04/24 09/04/24 09/05/24 14:59 22:59 06:59 Other: Weight 97.522 kg 97.522 kg Cranial Nerve Examination - Cranial Nerves Cranial Nerve I- Olfactory: Intact Cranial Nerve II- Optic: Intact Cranial Nerve III- Oculomotor: Intact Cranial Nerve IV- Trochlear: Intact Cranial Nerve V- Trigeminal: Intact Cranial Nerve - Abducens: Intact Cranial Nerve VII- Facial: Intact Cranial Nerve VIII- Auditory: Intact Cranial Nerve IX- Glossopharyngeal: Intact Cranial Nerve X- Vagus: Intact Cranial Nerve XI- Accessory: Intact Cranial Nerve XII- Hypoglossal: Intact Results Labs: Abnormal Lab Results - Last 24 Hours (Table) 09/04/24 09/04/24 Range/Units 08:06 15:46 Urine Protein Trace H (Negative) Urine Glucose (UA) 4+ H (Negative) Urine Blood Trace H (Negative) Urine Mucus Rare H (None) /hpf U Tricyclic Antidepress Detected H (NotDetected)
[2024-09-05] MEDS: METOPROLOL SUCCINATE (ER) 50 MG TAB.ER.24H PO SCH (08:38)
[2024-09-05] MEDS: DULoxetine HCL 60 MG CAPSULE.DR PO SCH (08:38)
[2024-09-05] MEDS: SPIRONOLACTONE 25 MG TAB PO SCH (08:38)
[2024-09-05] MEDS: DAPAGLIFLOZIN PROPANEDIOL 10 MG TABLET PO SCH (08:38)
[2024-09-05] MEDS ORDERED: NICOTINE 14MG/24HR PATCH TRANSDERM SCH (09:00)
[2024-09-05 09:40] LABS: Basophils % (A) 0 %; Eosinophils % (A) 0 %; HCT 52.1 % (39.0-53.0); Lymphocytes # (A) 1.4 k/uL (1.0-4.8); Lymphocytes % (A) 16 %; MCH 31.2 pg (25.0-35.0); MCHC 32.6 g/dL (31.0-37.0); MCV 95.6 fL (80.0-100.0); Mean Platelet Volume 7.1; Monocytes # (A) 0.5 k/uL (0-1.0); Monocytes % (A) 6 %; Neutrophils # (A) 6.7 k/uL (1.3-7.7); Neutrophils % (A) 76 %; Platelet Count 239 k/uL (150-450); RBC 5.45 m/uL (4.30-5.90); RDW 12.9 % (11.5-15.5); WBC 8.9 k/uL (3.8-10.6)
[2024-09-05 09:59] LABS: ALT 22 U/L (4-49); AST 20 U/L (17-59); African American GFR (CKD) 76 (>60 ml/min/1.73 sqM); Albumin 4.6 g/dL (3.5-5.0); Alkaline Phosphatase 77 U/L (38-126); Anion Gap 13 mmol/L; Blood Urea Nitrogen 21 mg/dL (9-20); Calcium 9.5 mg/dL (8.4-10.2); Carbon Dioxide 24 mmol/L (22-30); Chloride 102 mmol/L (98-107); Glucose 106 mg/dL (74-99); Non-African American GFR(CKD) 66 (>60 ml/min/1.73 sqM); Potassium 4.3 mmol/L (3.5-5.1); Sodium 139 mmol/L (137-145); Total Bilirubin 1.1 mg/dL (0.2-1.3)
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
[2024-09-05 16:36] LABS: Chol/HDL Ratio 6.68 Ratio; LDL Cholesterol,Calculated 163.3 mg/dL (0.0-131.0)
[2024-09-05] MEDS: DIVALPROEX 250 MG TABLET.DR PO SCH (20:25)
[2024-09-06] MEDS: SERTRALINE 50 MG TAB PO SCH (08:23)
[2024-09-06] MEDS: DULoxetine HCL 30 MG CAPSULE.DR PO SCH (08:23)
[2024-09-06 10:02] VITALS: BMI 29.1
--- NOTE | 2024-09-06 12:16 | P.PN ---
Progress Note - Text Progress Note Date: 09/06/24 Interval History: Patient was seen wandering the hallways and was directable and agreeable to sp son with credit underwriter in the office. Patient appeared bright in affect, reactive. He reports some sleep difficulties overnight described as difficulty with falling asleep, stating he normally takes magnesium at home to help with this. He states otherwise depression is better today as his states that he was approved for FMLA with his job so he does not have to return there upon discharge which is a big relief. Patient was goal oriented, talked about the potential to have an early senior care or get on disability. He has been attending groups, attending to his ADLs. He does report headache this morning and was encouraged to take as needed Tylenol or Motrin to help. Patient's lipid panel was elevated and he was encouraged to modify his diet and lifestyle and to follow-up with his PCP for further recommendations. At this time patient denies any suicidal or homicidal ideations, intent or plan. Patient denies any auditory, visual hallucinations and denies any paranoia or delusions. Patient has been compliant with meds. Mental Status Exam: General Appearance: Patient appears to be stated age is alert, directable, and cooperative. He wears glasses Behavior: Patient is calmly seated without any agitated behavior. Speech: Patient's speech is fluent and nonpressured. Mood/Affect: Mood is improving mildly, affect is congruent and bright, reactive. Suicidality/Homicidality: Patient denies having any suicidal or homicidal ideation intent or plan. Perceptions: Patient denies any visual hallucinations and denies any auditory hallucinations Though content/process: There is no evidence of any delusional thought content and thought process is linear and goal-directed. Memory and concentration: AOX3, grossly intact for the purposes of this session Judgment and insight: Improving mildly Assessment Major depressive disorder, recurrent, severe Suicide attempt via cutting History of TBI Plan: -Patient continues to meet criteria for inpatient psychiatric admission for symptom stabilization and safety. Patient has signed adult voluntary form and medication consent and was placed in patient's chart. -Medications: Decrease Cymbalta to 30 mg daily today and start Zoloft 50 mg daily for depression, continue Seroquel 100 mg at bedtime for sleep, Depakote 250 mg twice daily for mood stabilization/seizures, add melatonin 10 mg at bedtime for insomnia -When necessary Ativan and Haldol for agitation/aggression. -Labs: Reviewed, lipid panel elevated and patient encouraged to follow-up with PCP for further recommendations -SW on board for discharge planning. Encouraged the patient to participate in milieu. Anticipate discharge back home with in 2 days
[2024-09-06] MEDS: MELATONIN 5 MG TABLET PO SCH (20:15)
--- NOTE | 2024-09-07 10:41 | P.PN ---
Progress Note - Text Progress Note Date: 09/07/24 Interval History: Patient was seen in group and was directable and agreeable to speak with senior technical writer in the office. He displays bright affect, stated his union has been working hard and addressing the toxic workplace. He is still interested in obtaining FMLA to take some time away from work and is requesting of doctors note upon discharge before this can kick in. He reports sleeping well, no appetite changes. He mentions some mild fuzziness with discontinuing the Cymbalta however is tolerable and he was educated on the likely improvement in this with time. He has been active in groups. At this time patient denies any suicidal or homicidal ideations, intent or plan. Patient denies any auditory, visual hallucinations and denies any paranoia or delusions. Patient denies any side effects from the medications and has been compliant with meds. Mental Status Exam: General Appearance: Patient appears to be stated age is alert, directable, and cooperative. He wears glasses Behavior: Patient is calmly seated without any agitated behavior. Speech: Patient's speech is fluent and nonpressured. Mood/Affect: Mood is "great", affect is congruent and bright, reactive. Suicidality/Homicidality: Patient denies having any suicidal or homicidal ideation intent or plan. Perceptions: Patient denies any visual hallucinations and denies any auditory hallucinations Though content/process: There is no evidence of any delusional thought content and thought process is linear and goal-directed. Memory and concentration: AOX3, grossly intact for the purposes of this session Judgment and insight: Improving mildly Assessment Major depressive disorder, recurrent, severe Suicide attempt via cutting History of TBI Plan: -Patient continues to meet criteria for inpatient psychiatric admission for symptom stabilization and safety. Patient has signed adult voluntary form and medication consent and was placed in patient's chart. -Medications: Discontinue Cymbalta 30 mg daily today and continue Zoloft 50 mg daily for depression, continue Seroquel 100 mg at bedtime for sleep, Depakote 250 mg twice daily for mood stabilization/seizure, melatonin 10 mg at bedtime for insomnia -When necessary Ativan and Haldol for agitation/aggression. -Labs: Reviewed, encourage patient to follow-up with PCP given elevated lipid panel -SW on board for discharge planning. Encouraged the patient to participate in milieu. Anticipate discharge back home with tomorrow
[2024-09-08 09:07] VITALS: BP 127/82; PULSE 68; RESP 18; TEMP 98.4
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
== END 2024-09-08 12:52 | disposition home or self-care (01) | DRG 885 ==
LOC: EC 07:50 → 3MHU 13:50
PROVIDERS: ADMIT Psychiatry & Neurology Psychiatry; ATTEND Psychiatry & Neurology Psychiatry
DX: F33.2 Major depressive disorder, recurrent severe without psychotic features (principal); F41.9 Anxiety disorder, unspecified; S61.511A Laceration without foreign body of right wrist, initial encounter; F43.10 Post-traumatic stress disorder, unspecified; G47.00 Insomnia, unspecified; X78.9XXA Intentional self-harm by unspecified sharp object, initial encounter; Z79.84 Long term (current) use of oral hypoglycemic drugs; Z79.899 Other long term (current) drug therapy; Z87.820 Personal history of traumatic brain injury; Z91.52 Personal history of nonsuicidal self-harm; Z56.4 Discord with boss and workmates; Z56.89 Other problems related to employment; Z63.8 Other specified problems related to primary support group; Z91.85 Personal history of military service; Z95.0 Presence of cardiac pacemaker; Z98.1 Arthrodesis status; Z86.718 Personal history of other venous thrombosis and embolism; Z81.1 Family history of alcohol abuse and dependence; Z81.8 Family history of other mental and behavioral disorders
CPT/HCPCS: 80053; 80061; 80306; 81001; 82075; 83036; 84443; 85025; 87635; 90471; 90715; 99285

== ENCOUNTER 2024-09-11 05:31 | Day surgery (SDC) | payer BC ==
[2024-09-11] MEDS ORDERED: SODIUM CHLORIDE 0.9% 1,000 ML IV SCH (06:00)
[2024-09-11 06:07] VITALS: RESP 16; TEMP 97.6
[2024-09-11] MEDS: SODIUM CHLORIDE 0.9% 1,000 ML IV SCH (06:12)
[2024-09-11] MEDS ORDERED: PROPOFOL 10 MG/ML 20 ML VIAL IV ONE (07:21)
[2024-09-11] MEDS: IV FLUID CONTINUATION 1,000 ML IV ONE (07:25)
--- NOTE | 2024-09-11 07:46 | P.HPCAR ---
History of Present Illness This is Dr. Zee dictating an H/P on this patient The patient was interviewed and examined IMPRESSION / ASSESSMENT: Nonischemic cardiomyopathy, left ventricular ejection fraction of 30% Class II CHF Left bundle branch block Status post biventricular ICD, Cortez 2 to 3 months back Mild improvement in breathing and energy level PLAN: Defibrillation level testing BiV ICD reprogramming accordingly Maximize heart failure medication Recent admission for depression HPI Patient feels he is doing a lot better after the BiV ICD. He feels his color is improved, he is less symptomatic less tired and fatigued Denies any heart failure exacerbation. Shortness of breath is better His BiV ICD is functioning normally. ROS: No fever chills or rigors, no cough, phlegm or expectoration, no nausea, vomiting or diarrhea, no hematuria, dysuria, no musculoskeletal complaints, no strokes or seizures, no skin lesions. EXAMINATION: 139/82 mmHg pulse rate in the 80s No JVD normal heart sounds No lower extremity edema Clear lungs Orthopnea REVIEW OF LABS, ECG & MEDICAL DATA Normal TSH recently Normal sodium and potassium Normal creatinine 1.24 LDL 163 HDL 35 Physical Exam Vitals: Vital Signs Temp Pulse Resp BP Pulse Ox 09/11/24 06:03 97.6 F 82 16 139/82 98 Intake and Output 09/10/24 09/11/24 09/11/24 22:59 06:59 14:59 Intake Total 150 Balance 150 Intake: IV 150 Other: Weight 99.2 kg Past Medical History Past Medical History: Deep Vein Thrombosis (DVT) Additional Past Medical History / Comment(s): heart not performing at capacity see dr zee's h & p, has shunt to drain fluid off brain r/t tbi History of Any Multi-Drug Resistant Organisms: None Reported Past Surgical History: Back Surgery, Pacemaker Additional Past Surgical History / Comment(s): neck surgery - cervical fusion Past Anesthesia/Blood Transfusion Reactions: No Reported Reaction Type of Cardiac Device: AICD Device Placement Date:: 07/02/2024 Smoking Status: Never smoker - Past Family History Mother Family Medical History: No Reported History Additional Family Medical History / Comment(s): pt reports mother is still living and has no reported medical history (09/04/24) Father Additional Family Medical History / Comment(s): pt reports father has cardiac history and has had 2 stents placed. Father is still living (09/04/24) Physical Examination Vital Signs Temp Pulse Resp BP Pulse Ox 09/11/24 06:03 97.6 F 82 16 139/82 98 Intake and Output 09/10/24 09/11/24 09/11/24 22:59 06:59 14:59 Intake Total 150 Balance 150 Intake: IV 150 Other: Weight 99.2 kg Results Current Medications Generic Name Dose Route Start Last Admin Trade Name Freq PRN Reason Stop Dose Admin Sodium Chloride 1,000 mls @ 20 mls/hr 09/11/24 05:47 09/11/24 06:12 Saline 0.9% IV 10/11/24 05:46 20 mls/hr .Q24H GOLDIE Administration Sodium Chloride 1,000 mls @ 20 mls/hr 09/11/24 06:00 Saline 0.9% IV 10/11/24 05:59 .Q24H GOLDIE Intake and Output 09/10/24 09/11/24 09/11/24 22:59 06:59 14:59 Intake Total 150 Balance 150 Intake: IV 150 Other: Weight 99.2 kg
--- NOTE | 2024-09-11 07:53 | P.EPPROC ---
- EP Procedure Note Electrophysiology Procedure Note: Diagnosis Nonischemic cardiomyopathy Status post BiV ICD, Kaai CHF class II Recent BiV ICD implantation 2 months back Final diagnosis High DFT 20 J Nonischemic cardiomyopathy congestive heart failure class II, underlying left bundle branch block pattern Details Cortez BiV ICD was interrogated. Implant date was June 22, 2024 Atrial pacing threshold 0.8 V at 0.5 ms, P waves greater than 5 mV and pacing. 390 ohms R waves 8.3 mV, pacing threshold 0.5 V at 0.5 ms and pacing pins of femoral and 80 ohms LV pacing threshold 1 V at 0.5 ms, M2-RV coil, pacing pins 500 ohms High-voltage impedance 77 ohms Defibrillation level testing performed VF induced, adequately and appropriately directedly sensitivity A 10 J shock was unsuccessful and defibrillated the patient A 20 J shock was successful in the anode vector The patient went into atrial fibrillation spontaneously He underwent electrical cardioversion with an external synchronized shock of 200 J to sinus rhythm Plan Maximize beta-blockers Watch for spontaneous episodes of atrial fibrillation and if so consider anticoagulation based on [id number] score Follow-up with Dr. Davis
--- NOTE | 2024-09-11 07:59 | P.PRLE ---
RE: Milton Cedeno Dear Tu Rose underwent defibrillation level testing 3 months after BiV ICD implantation. Clinically he is doing well but his DFT was high. A 10 J shock failed to defibrillate him to sinus rhythm. In addition he spontaneously went into atrial fibrillation with RVR at 145 beats a minute following DFT I would increase his beta-blockers and his heart failure medications and try switching him to Entresto Today have increased the dose of metoprolol succinate to 75 mg p.o. daily About watching for silent episodes of atrial fibrillation in the future Today I have increased the dose of metoprolol succinate to 75 mg p.o. daily Thank you for entrusting me with the care of the patient Warm regards Sincerely Kee Zee
[2024-09-11 10:33] VITALS: BP 127/79; PULSE 62
== END 2024-09-11 08:53 | disposition home or self-care (01) ==
LOC: CATHEP 05:31
PROVIDERS: ATTEND Internal Medicine Clinical Cardiac Electrophysiology
DX: I42.0 Dilated cardiomyopathy (principal); I44.7 Left bundle-branch block, unspecified; I50.9 Heart failure, unspecified; I48.91 Unspecified atrial fibrillation; Z95.810 Presence of automatic (implantable) cardiac defibrillator; Z86.718 Personal history of other venous thrombosis and embolism
CPT/HCPCS: 93642; J2704